=== PATIENT | male | born 1965 | race Caucasian/White ===

== ENCOUNTER 2022-08-27 12:47 | Outpatient (REF) | payer OTHER, SELFPAY | END 2022-08-27 12:48 | disposition home or self-care (01) | LOC: HO.MRI 12:47 | PROVIDERS: PCP Family Medicine; Visit Provider Psychiatry & Neurology Neurology | DX: Z13.89 Encounter for screening for other disorder (principal) ==

== ENCOUNTER 2022-09-17 12:50 | Outpatient (REF) | payer OTHER, SELFPAY ==
--- NOTE | ~2022-09-17 | MR_ITS ---
EXAMINATION: MR BRAIN WITHOUT CONTRAST CLINICAL INFORMATION: Dysphonia. Rule out lower brainstem lesion. Vocal cord paralysis. COMPARISON: None available. TECHNIQUE: Multiplanar, multisequence imaging of the brain was performed without intravenous contrast. FINDINGS: There is no acute infarction, hemorrhage, mass, or extra-axial fluid collection. Small foci of susceptibility signal most likely representing chronic microhemorrhage seen within the right frontal lobe and in the right temporal and left occipital lobes in addition to the left cerebellum. A few minimal nonspecific foci of T2/FLAIR hyperintensity are seen in the white matter. The ventricles are normal in size without hydrocephalus. The brainstem appears normal. There is no posterior fossa abnormality including abnormal volume loss the jugular fossa are unremarkable. The major arterial flow voids are preserved at the skull base. The orbits appear normal. MR/MR head/brain wo con IMPRESSION: No acute infarct, mass lesion, or evidence of hydrocephalus. No posterior fossa abnormality identified. A few chronic microhemorrhages are seen in the white matter, which could be seen in the setting of chronic hypertension.
== END 2022-09-17 12:51 | disposition home or self-care (01) ==
LOC: HO.MRI 12:50
PROVIDERS: PCP Family Medicine; Visit Provider Psychiatry & Neurology Neurology
DX: R49.0 Dysphonia (principal)
CPT/HCPCS: 70551